=== PATIENT | male | born 1970 | race Caucasian/White ===

== ENCOUNTER 2019-05-25 12:38 | Emergency (ER) | payer MEDICAID ==
--- NOTE | 2019-05-25 13:14 | ER Document Report ---
HPI - HPI Time Seen by Provider: 05/25/19 12:52 Pain Level: 4 Context: Patient is a 48-year-old male who presents to the emergency department with a rash to his left face. Patient states this is been intermittent for 5 years and comes and goes. Patient states over the past 3 weeks he has noticed the bumps and rash to the left cheek. Patient states that while working outside he does sweat a lot and that seems to make it worse. Patient states he is used Neosporin, but patient is opposite all [id number]-zeg-altoplt medications with very minimal relief. Patient states the rash actually looks better today as he is not outside working and sweating. Patient states it does itch. Patient states he did make an appointment with dermatology but cannot get in until July 04. Patient states he seen dermatology in the past and was given a cream but he cannot remember what it was called. Past Medical History - General Information source: Patient - Social History Smoking Status: Unknown if Ever Smoked Lives with: Family Family History: None - Past Medical History Cardiac Medical History: Reports: None Pulmonary Medical History: Reports: None EENT Medical History: Reports: None Neurological Medical History: Reports: None Endocrine Medical History: Reports: None Renal/ Medical History: Reports: None Malignancy Medical History: Reports None GI Medical History: Reports: None Musculoskeletal Medical History: Reports None Skin Medical History: Reports None Psychiatric Medical History: Reports: None Traumatic Medical History: Reports: None Infectious Medical History: Reports: None Surgical Hx: Negative Vertical Provider Document - CONSTITUTIONAL Agree With Documented VS: Yes Exam Limitations: No Limitations General Appearance: No Apparent Distress - INFECTION CONTROL TRAVEL OUTSIDE OF THE [place] IN LAST 30 DAYS: No - HEENT HEENT: Atraumatic, Normocephalic, PERRLA Notes: Patient does have scattered comedones of the different sizes noted throughout the face but significantly worse to the left cheek. Some of these have whiteheads. These areas are erythematous. There does not appear to be a surrounding cellulitis. - RESPIRATORY Respiratory: Breath Sounds Normal, No Respiratory Distress - CARDIOVASCULAR Cardiovascular: Regular Rate, Regular Rhythm - GI/ABDOMEN Gastrointestinal: Abdomen Soft, Abdomen Non-Tender, Normal Bowel Sounds - NEURO Level of Consciousness: Awake, Alert, Appropriate - DERM Integumentary: Warm, Dry Discharge - Discharge Clinical Impression: Rash Condition: Stable Disposition: HOME, SELF-CARE Additional Instructions: Today you were seen in the emergency department for a rash to the left face. Although I am not exactly sure what is causing this we will give you a dose of Decadron which is a steroid prior to discharge. This should help with inflammation and itching. I will also place you on doxycycline. This is an oral antibiotic that you will take for 1 week. Ultimately do need to follow-up with the instructor dramatic arts so they can give you medication for long-term and the appropriate treatment. While on doxycycline please wear long sleeves and long pants and keep your skin covered by using a hat. Doxycycline can cause skin sensitivity while in the sun and can cause blistering. Do not pop the bumps on your face as this can cause infection. Please use a good skin care regimen to your face that is non-scented and hypoallergenic. Do not scrub her face vigorously. Try to avoid letting sweat hit the bumps on her face as this does seem to make it worse and irritated. Doxycycline Doxycycline (Vibramycin, Doryx) is an antibiotic of the tetracycline family. This type of drug is useful for infections of the respiratory tract and genital tract, and is sometimes used for intestinal infections. Unlike most tetracyclines, doxycycline can be taken with food. It is longer acting, and (usually) less prone to side effects than regular tetracycline. Tetracycline antibiotics can stain immature teeth and SHOULD NOT BE TAKEN BY CHILDREN, NURSING MOTHERS, OR WOMEN. Tetracyclines can make you more prone to sunburn. Abdominal cramping, nausea, and diarrhea are occasional side effects. Women may experience vaginal yeast infections. Call the doctor at once if you develop hives, itching, shortness of breath, or lightheadedness. Acne Acne is a disease of the skin's sebaceous glands. These "pores" produce a waxy substance called sebum. Before puberty, these glands are not very active. Acne is caused by hormones, which lead to excess production of sebum and bacterial inflammation in the glands. It can range in severity from an occasional pimple to constant multiple deep abscesses that leave scars. Blackheads: These are pores clogged with sebum and skin cells. The exposed material turns black. Whiteheads: Bacteria growing in the enlarged pore cause inflammation. A white collection of trapped pus, surrounded by red raised skin, is also called a "pimple." Furuncles and boils: This is the most serious stage of acne. An infected pore lets bacteria invade the deeper layers below the skin. A hard, red, tender lump forms. A collection of pus is at the core of this lump. This type of acne can leave significant scars. Modern acne treatment is usually very effective, although it may take up to four weeks before you notice improvement. Benzoyl peroxide cream or gel can treat milder cases. Prescription medicines used for acne include antibiotic pills, antibiotic skin treatments, and tretinoin (Retin-A). Skin gels and lotions can make the skin red, dry, and peeling. Severe cases may require Accutane. Accutane can have significant side effects, so treatment needs to be monitored by a physician. Tops of whiteheads may be lanced with a sterile needle to allow pus drainage. Apply hot compresses to tender pimples. Don't squeeze pimples. Acne can be affected by your level of stress, physical activity, and the cleanliness of your skin. It is NOT worsened by anything you eat. Acne goes away with time, although some adults continue to have an occasional flare. Most teenagers with acne will be free of symptoms by the time they're 21 years old. See the doctor if you have a tender lump larger than 1 centimeter (3/8 inch) in size, tender spreading redness, fever, or continued drainage from a skin sore. Prescriptions: Doxycycline Hyclate 100 mg PO BID #14 capsule Forms: Return to Work
[2019-05-25] MEDS ORDERED: DEXAMETHASONE SOD PHOS INJ 10 MG/1 ML VIAL IM ONE (13:18)
== END 2019-05-25 13:35 | disposition home or self-care (01) ==
LOC: EDBD → ER 12:38
DX: R21 Rash and other nonspecific skin eruption (principal); L29.8 Other pruritus; L70.0 Acne vulgaris
CPT/HCPCS: 99282; J1100

== ENCOUNTER 2020-02-13 08:10 | Emergency (ER) | payer SELFPAY ==
[2020-02-13] MEDS ORDERED: DOXYCYCLINE HYCLATE 100 MG TABLET PO ONE (08:45)
[2020-02-13] MEDS ORDERED: CEPHALEXIN 500 MG CAPSULE PO ONE (08:45)
--- NOTE | 2020-02-13 08:51 | ER Document Report ---
ED Skin Rash/Insect Bite/Abscs - General Stated Complaint: RASH Time Seen by Provider: 02/13/20 08:42 Notes: CHIEF COMPLAINT: Facial rash for 5 days HPI: 49-year-old male presenting with a papular facial rash for the last 5 days reports some discomfort to the face from the rash. No fever. States the rash is only from the neck up. Patient states she has had a rash previously and did have to go on antibiotics for it. He reports an allergy to Bactrim ROS: See HPI - all other systems were reviewed and are otherwise negative Constitutional: no fever Eyes: no drainage, no blurred vision ENT: no runny nose, no sore throat GI: no vomiting, no diarrhea, no abdominal pain : no dysuria Integumentary: + rash Allergy: no hives MEDICATIONS: I agree with the patient medications as charted by the RN. ALLERGIES: I agree with the allergies as charted by the RN. PAST MEDICAL HISTORY/PAST SURGICAL HISTORY: Reviewed and agree as charted by RN. SOCIAL HISTORY: Reviewed and agree as charted by RN. FAMILY HISTORY: No significant familial comorbid conditions directly related to patient complaint EXAM: Reviewed vital signs as charted by RN. CONSTITUTIONAL: Alert and oriented and responds appropriately to questions. Well-appearing; well-nourished HEAD: Normocephalic; atraumatic EYES: Conjunctivae clear, sclerae non-icteric ENT: normal nose; no rhinorrhea; moist mucous membranes; pharynx without lesions noted, no uvula edema or deviation, no tonsillar hypertrophy, phonation normal NECK: Supple without meningismus; non-tender; no cervical lymphadenopathy, no masses CARD: symmetric distal pulses RESP: Normal chest excursion without splinting or tachypnea ABD/GI: non-distended. BACK: The back appears normal EXT: Normal ROM in all joints; no cyanosis, no effusions, no edema SKIN: Normal color for age and race; warm; dry; good turgor; papular rash to the entire face with pustules noted. Rash does not appear to extend below the neck. No petechia. No purpura. No vesicles NEURO: Moves all extremities equally; Motor and sensory function intact PSYCH: The patient's mood and manner are appropriate. Grooming and personal hygiene are appropriate. MDM: 49-year-old male with a pustular rash to the face likely a folliculitis or secondary infection. Unable to definitively determine an underlying rash or condition secondary to the papular and pustular nature of this rash. It does cover the entire face and upper neck region that is sun exposed. Will place patient on doxycycline, Keflex to cover for MRSA as he has had a rash previously. TRAVEL OUTSIDE OF THE [place] IN LAST 30 DAYS: No - Related Data Allergies/Adverse Reactions: sulfamethoxazole [From Bactrim] Allergy (Verified 05/25/19 12:39) trimethoprim [From Bactrim] Allergy (Verified 05/25/19 12:39) Past Medical History - Social History Smoking Status: Unknown if Ever Smoked Family History: None Renal/ Medical History: Denies: Hx Peritoneal Dialysis Past Surgical History: Reports: Hx Orthopedic Surgery - Toe Physical Exam - Vital signs Vitals: Temp Pulse Resp BP Pulse Ox 98.6 F 80 20 129/82 H 100 02/13/20 08:14 02/13/20 08:14 02/13/20 08:14 02/13/20 08:14 02/13/20 08:14 Course - Vital Signs Vital signs: Temp Pulse Resp BP Pulse Ox 98.6 F 80 20 129/82 H 100 02/13/20 08:14 02/13/20 08:14 02/13/20 08:14 02/13/20 08:14 02/13/20 08:14 Discharge - Discharge Clinical Impression: Folliculitis Condition: Stable Disposition: HOME, SELF-CARE Additional Instructions: Use Hibiclens on the face once or twice daily for the next week. Wet the skin, apply the Hibiclens as a soap on the face do not use it over the eyes directly let it sit on the skin for 5 minutes then rinse off. Hibiclens is an [id number] medication that you can obtain at the pharmacy. Take the antibiotics as prescribed. Follow-up with a primary care provider for reevaluation of symptoms call for appointment. Return for worsening rash or onset of fever. Prescriptions: Doxycycline Monohydrate 100 mg PO BID #20 capsule Cephalexin Monohydrate [Keflex 500 mg Capsule] 500 mg PO Q6H 7 Days #28 capsule
[2020-02-13 09:34] VITALS: BP 134/68
== END 2020-02-13 09:34 | disposition home or self-care (01) ==
LOC: ER 08:10
DX: L73.9 Follicular disorder, unspecified (principal); Z88.3 Allergy status to other anti-infective agents
CPT/HCPCS: 99282